=== PATIENT | male | born 1940 | race Caucasian/White ===

== ENCOUNTER → 2022-08-29 | Outpatient (CLI) | payer MEDICARE, OTHER ==
[~2022-08-29] MED LIST: ALLO300T2 PO; ASPI-586 PO; BUME2TAB7 PO; CHOL40003 PO; FINA5TAB6 PO; HYDR-34 PO; LEVO200T PO; METH20TA PO; MULT-517 PO; POTA10TA10 PO; SILO8CAP2 PO
== END ==
LOC: WOUNDCARE 14:13
PROVIDERS: ATTEND Family Medicine
DX: L72.3 Sebaceous cyst (principal); L02.212 Cutaneous abscess of back [any part, except buttock and flank]; T81.31XA Disruption of external operation (surgical) wound, not elsewhere classified, initial encounter; L03.312 Cellulitis of back [any part except buttock and flank]; E55.9 Vitamin D deficiency, unspecified; E66.01 Morbid (severe) obesity due to excess calories; I96 Gangrene, not elsewhere classified; Z68.33 Body mass index [BMI] 33.0-33.9, adult
CPT/HCPCS: A6260; A6266; G0463; 99213

== ENCOUNTER → 2022-09-06 | Outpatient (CLI) | payer MEDICARE, OTHER | LOC: WOUNDCARE 10:56 | PROVIDERS: ATTEND Family Medicine | DX: L02.212 Cutaneous abscess of back [any part, except buttock and flank] (principal); T81.31XA Disruption of external operation (surgical) wound, not elsewhere classified, initial encounter; L03.319 Cellulitis of trunk, unspecified; E55.9 Vitamin D deficiency, unspecified; E66.01 Morbid (severe) obesity due to excess calories; I96 Gangrene, not elsewhere classified; Z68.33 Body mass index [BMI] 33.0-33.9, adult | CPT/HCPCS: 99213 ==

== ENCOUNTER → 2022-09-12 | Outpatient (CLI) | payer MEDICARE, OTHER | LOC: WOUNDCARE 14:59 | PROVIDERS: ATTEND Family Medicine | DX: L72.3 Sebaceous cyst (principal); L02.212 Cutaneous abscess of back [any part, except buttock and flank]; T81.31XA Disruption of external operation (surgical) wound, not elsewhere classified, initial encounter; L03.312 Cellulitis of back [any part except buttock and flank]; E55.9 Vitamin D deficiency, unspecified; E66.01 Morbid (severe) obesity due to excess calories; Z68.33 Body mass index [BMI] 33.0-33.9, adult | CPT/HCPCS: A6212; G0463; 99213 ==

== ENCOUNTER → 2022-09-26 | Outpatient (CLI) | payer MEDICARE, OTHER | LOC: WOUNDCARE 14:58 | PROVIDERS: ATTEND Family Medicine | DX: L72.3 Sebaceous cyst (principal); L02.212 Cutaneous abscess of back [any part, except buttock and flank]; T81.31XA Disruption of external operation (surgical) wound, not elsewhere classified, initial encounter; L03.312 Cellulitis of back [any part except buttock and flank]; E55.9 Vitamin D deficiency, unspecified; E66.01 Morbid (severe) obesity due to excess calories; Z68.33 Body mass index [BMI] 33.0-33.9, adult | CPT/HCPCS: A6212; G0463; 99213 ==

== ENCOUNTER → 2022-10-11 | Outpatient (CLI) | payer MEDICARE, OTHER ==
[~2022-10-11] VITALS: Ht 182.9 cm; Wt 113.6 kg
== END | disposition home or self-care (01) ==
LOC: PREOP 07:07
PROVIDERS: ATTEND Surgery
DX: Z01.818 Encounter for other preprocedural examination (principal)

== ENCOUNTER 2022-10-18 06:03 | Day surgery (SDC) | payer MEDICARE, OTHER ==
[~2022-10-18] VITALS: Ht 182 cm; Wt 113.6 kg
[2022-10-18] MEDS ORDERED: LACTATED RINGERS 1,000 ML IV PRN (06:30)
[2022-10-18] MEDS ORDERED: ceFAZolin INJECTION 2,000 MG in NS (IVPB) 50 ML IV ONE (06:30)
[2022-10-18] MEDS ORDERED: LIDOCAINE/EPI 1%-1:100,000 (XYLOCAINE) 20ML ONE (07:02)
[2022-10-18] MEDS ORDERED: fentaNYL INJ 100 MCG/2 ML AMP ONE (07:04)
[2022-10-18] MEDS ORDERED: PROPOFOL INJECTION 50 ML IV ONE (07:04)
--- NOTE | 2022-10-18 07:59 | Progress Note-Pre Operative ---
Pre-Operative Progress Note Date H&P Reviewed: Oct 18, 2022 Time H&P Reviewed: 07:59 History & Physical: H&P Reviewed, Patient Examed, No changes noted Pre-Operative Diagnosis: cyst back ARIANE JOHNSON DO Oct 18, 2022 07:59
[2022-10-18] MEDS ORDERED: LIDOCAINE/EPI 1%-1:100,000 (XYLOCAINE) 20ML INJ ONE (08:17)
[2022-10-18 08:33] VITALS: BP 95/55
--- NOTE | 2022-10-18 08:37 | Anesthesia-General Post-Op ---
MAC Patient Condition Mental Status/LOC: Same as Preop Cardiovascular: Satisfactory Nausea/Vomiting: Absent Respiratory: Satisfactory Pain: Controlled Complications: Absent Post Op Complications Complications None Follow Up Care/Instructions Patient Instructions None needed. Anesthesiology Discharge Order Discharge Order Patient is doing well, no complaints, stable vital signs, no apparent adverse anesthesia problems. No complications reported per nursing. ALEJA ARGUETA CRNA Oct 18, 2022 08:37
[2022-10-18 08:40] VITALS: BP 103/62
[2022-10-18] MEDS ORDERED: morphine INJ 10 MG/ML 1ML (SYR OR VIAL) IVP ONE (08:45)
[2022-10-18] MEDS ORDERED: MEPERIDINE (DEMEROL) INJ 50 MG/ML IVP ONE (08:45)
[2022-10-18] MEDS ORDERED: ONDANSETRON 4 MG/2 ML (SDV) Z0FRAN IVP PRN (08:45)
--- NOTE | 2022-10-18 08:45 | Discharge Inst-Simple/Standard ---
Discharge Inst-Standard Patient Instructions/Follow Up Plan of Care/Instructions/FU: 2 weeks Surjit for suture removal Activity as Tolerated: No Discharge Diet: Regular Diet Other Inst to Patient Follow up Appt: Make appointment for 2 week. Instructions: No lifting greater than 10 pounds. No strenuous activity. May shower in 24 hours, no tub bath or soaking. Use incentive spirometer at home as directed. No Smoking Skin/Wound Care: Keep area clean and dry. Change dressing daily and as needed. After 24 hours you don't need a dressing if you don't want one, just keep clean and dry. If may get dirty use bandage. Symptoms to Report: Appetite Changes, Extremity Discoloration, Numbness/Tingling, Swelling Increased, Bleeding Excessive, Eyesight Changes, Pain Increased, Urine Color Change, Constipation(Persistent), Fever over 101 degree F, Pain/Pressure in chest, Urinating Difficulty, Cough Up/Vomit Blood, Heart Beat Irreg/Pounding, Pain/Pressure in jaw, Vaginal Bleeding Increase, Cramps in feet or legs, Lightheadedness, Pain/Pressure in shoulder, Diarrhea(Persistent), Memory Changes Suddenly, Questions/Concerns, Weight gain consecutive days, Dizziness/Fainting, Nausea/Vomiting, Shortness of Breath, Weight gain over 2 pounds If questions or concerns contact your physician Or seek help at emergency department. ARIANE JOHNSON DO Oct 18, 2022 08:45
--- NOTE | 2022-10-18 08:47 | Progress Note-Post Operative ---
Post-Operative Progess Note Surgeon (s)/Improvement Leader (s) Surgeon ARIANE JOHNSON DO Improvement Leader: na Pre-Operative Diagnosis cyst back Post-Operative Diagnosis same Procedure & Operative Findings Date of Procedure 10/18/22 Procedure Performed/Findings excision cyst back 9 x 2.5 cm Anesthesia Type mac c local Estimated Blood Loss Estimated blood loss (mL): minimal Specimens/Packing Specimens Removed skin and subctuaneous tissue (cysts) ARIANE JOHNSON DO Oct 18, 2022 08:47
[2022-10-18 08:50] VITALS: BP 108/60
[2022-10-18 09:00] VITALS: BP_SYST 109; BP_SYST 112; BP_DIAS 63
[2022-10-18 09:30] VITALS: BP 115/72
--- NOTE | 2022-10-18 12:47 | OPERATIVE REPORT ---
DATE OF SERVICE: 10/18/2022 PREOPERATIVE DIAGNOSIS: Cyst of back. POSTOPERATIVE DIAGNOSIS: Cyst of back. PROCEDURE: Excision of cyst of back, 9 x 2.5 cm. SURGEON: Ariane Eddy DO ANESTHESIA: MAC with local. ESTIMATED BLOOD LOSS: Minimal. COMPLICATIONS: None. SPECIMENS: Skin and subcutaneous tissue of the cyst. INDICATIONS: The patient is an 82-year-old male with 2 cysts on the back. He wishes to have these removed. He had to have it previously lanced and drained. He understands risks and benefits of procedure and wished to proceed. Consent was signed in chart. DESCRIPTION OF PROCEDURE: The patient was taken to the operating suite where he was placed in right lateral recumbent position. Timeout was performed. Local anesthetic was infiltrated around the area on the back. A #15 blade scalpel was used to make an elliptical incision measuring 9 x 2.5 cm. Cautery was used to remove the skin and subcutaneous tissues achieving hemostasis. Once removed, the wound was irrigated and skin was then closed with 0 Prolene in vertical mattress fashion and 2-0 nylon in simple interrupted fashion. The area was washed and dried and sterile bandage was applied. The patient tolerated the procedure well without complications, taken to recovery room in stable condition. Job ID: [id number] DocumentID: [id number] Dictated Date: 10/18/2022 09:46:45 Plant Engineering Manager Date: 10/18/2022 12:45:00 Dictated By: ARIANE EDDY DO MTDD
== END 2022-10-18 09:45 | disposition home or self-care (01) ==
LOC: SDC 06:03
PROVIDERS: ATTEND Surgery
DX: L72.0 Epidermal cyst (principal); Z79.01 Long term (current) use of anticoagulants
CPT/HCPCS: 87081